=== PATIENT | male | born 1980 | race Caucasian/White ===

== ENCOUNTER 2018-07-11 18:31 | Emergency (ER) | payer OTHER ==
[~2018-07-11] VITALS: Ht 182.9 cm; Wt 92.5 kg
[2018-07-11 19:27] VITALS: BP 137/88
[2018-07-11] MEDS ORDERED: ONDANSETRON HCL 4 MG/2 ML VIAL IV ONE (19:30)
[2018-07-11] MEDS ORDERED: HYDROmorphone HCL 2 MG/ML VL IV ONE (19:30)
[2018-07-11] MEDS ORDERED: ETOMIDATE (2MG/ML) 20ML VIAL IV ONE ×2 (19:34→21:30)
[2018-07-11] MEDS ORDERED: TETANUS-DIPTH-ACEL PERTUSSIS 0.5ML SYRG IM ONE (21:15)
== END 2018-07-11 22:23 | disposition home or self-care (01) ==
LOC: EDBD 18:31 → ER 18:35
DX: S52.042A Displaced fracture of coronoid process of left ulna, initial encounter for closed fracture (principal); S60.511A Abrasion of right hand, initial encounter; F17.290 Nicotine dependence, other tobacco product, uncomplicated; V00.131A Fall from skateboard, initial encounter; Y93.89 Activity, other specified; Y99.8 Other external cause status; Y92.89 Other specified places as the place of occurrence of the external cause
CPT/HCPCS: 24675; 73070; 90471; 90715; 96374; 96375; 99152; 99153; 99285; J1170; J2405